=== PATIENT | male | born 1965 | race Caucasian/White ===

== ENCOUNTER 2016-04-12 18:06 | Emergency (ER) | payer OTHER ==
[~2016-04-12] VITALS: Ht 185.4 cm; Wt 132.7 kg
[~2016-04-12 18:06] MED LIST: ACCURETIC 12.51 TA1 PO; ASPI325T6 PO; ASPIRIN 32325 MG/TA1 PO; ATENOLOL25 MG PO; ATIVAN0.5 MG PO; BENADRYL50 MG PO; BETAPACE 120MG120 MG PO; CARDIZEM 60MG T60 MG PO; CARDIZEM CD 18180 MG PO; FLEXERIL 1010 MG/TAB PO; FOLIC ACID0.8 MG PO; HYDROCODONE BIT1 TA3 PO; HYTRIN 1MG C1 MG/CAP PO; IBUPROFEN800 MG PO; IRON65 M1 PO; LASIX 20MG TABL20 MG PO; LISINOPRIL/HCTZ1 TA1 PO; LORTAB 10/500 51 TA1 PO; MELATONIN FORTE3 MG PO; MELATONIN0.3 MG; MINIPRESS 1M1 MG/CAP PO; MULTAQ400 MG PO; NEXIUM 40MG40 MG PO; NORCO 325 MG-101 TAB PO; OXY IR5 MG; OXYCONTIN30 MG PO; PRIL40 PO; PRILOSEC 20MG20 MG PO; PROBIOTIC PO; PROTONIX 40MG T40 MG PO; ROXICODONE30 MG PO; TYLENOL 325MG325 MG PO; VITAMIN C500 MG PO; XARELTO10 MG PO; XARELTO20 MG PO; ZESTRIL 20MG TA20 MG PO; ZESTRIL40 MG PO
[2016-04-12 18:09] VITALS: BP 151/85; TEMP 97.8
[2016-04-12] MEDS ORDERED: ZITHROMAX 250M250 MG PO (18:13)
[2016-04-12 19:23] VITALS: PULSE 89
== END 2016-04-12 19:25 | disposition home or self-care (01) ==
LOC: COL.ER 18:06
DX: S61.012A Laceration without foreign body of left thumb without damage to nail, initial encounter (principal); W26.0XXA Contact with knife, initial encounter

== ENCOUNTER 2016-04-23 19:02 | Emergency (ER) | payer OTHER ==
[~2016-04-23 19:02] MED LIST changes: +ZITHROMAX 250M250 MG PO
[2016-04-23 19:08] VITALS: BP 139/102; PULSE 77; TEMP 98
== END 2016-04-23 19:15 | disposition home or self-care (01) ==
LOC: COL.ER 19:02
DX: Z48.02 Encounter for removal of sutures (principal)

== ENCOUNTER 2016-05-29 13:02 | Day surgery (SDC) | payer OTHER ==
[~2016-05-29] VITALS: Ht 185.5 cm; Wt 133.6 kg
[2016-05-29] VITALS (8 sets, daily range): BP systolic 107–136; BP diastolic 73–101; PULSE 52–70; TEMP 98
[2016-05-29 14:20] LABS: HEMOGLOBIN 13.5 g/dl (13.5-18.0); MEAN CELL VOLUME 86 fl (80.0-100.0); MEAN CORPUSCULAR HEMOGLOBIN 29 pg (27.0-31.0); MEAN CORPUSCULAR HGB CONC 34 g/dl (33.0-37.0); MEAN PLATELET VOLUME 8.9 fl (7.4-10.4); PLATELET COUNT 337 K/mm3 (130-400); RED BLOOD COUNT 4.67 M/mm3 (4.20-5.60); REDCELL DISTRIBUTION WIDTH-CV 13.1 % (11.5-14.5); WHITE BLOOD COUNT 10.4 K/mm3 (4.8-10.8)
[2016-05-29 14:35] LABS: INR 1.2 (0.8-3.0); PROTHROMBIN TIME 13.7 SECONDS (9.7-12.8)
[2016-05-29 14:39] LABS: CALCIUM 9.5 mg/dL (8.4-10.2); CREATININE, serum 0.83 mg/dL (0.66-1.25); POTASSIUM 4.5 mmol/L (3.4-5.0)
[2016-05-29] MEDS ORDERED: BETAPACE 120MG120 MG PO (15:00)
[2016-05-29] MEDS ORDERED: OMEGA-3 FISH1000 MG PO (15:02)
[2016-05-29] MEDS ORDERED: ASPIRIN 81M81 MG/TA2 PO (17:44)
== END 2016-05-29 19:00 | disposition home or self-care (01) ==
LOC: COL.RAD 13:02
PROVIDERS: Internal Medicine Interventional Cardiology
DX: R07.89 Other chest pain (principal); R94.39 Abnormal result of other cardiovascular function study; I48.0 Paroxysmal atrial fibrillation
CPT/HCPCS: C1760; C1887; J2250; J3010; Q9967

== ENCOUNTER 2016-11-14 14:11 | Emergency (ER) | payer OTHER ==
[~2016-11-14] VITALS: Ht 185.4 cm; Wt 134.1 kg
[~2016-11-14 14:11] MED LIST changes: +ASPIRIN 81M81 MG/TA2 PO; +OMEGA-3 FISH1000 MG PO
[2016-11-14 14:16] VITALS: BP 126/84; TEMP 98
[2016-11-14] MEDS ORDERED: LIORESAL 1010 MG/TAB PO (14:40)
[2016-11-14] MEDS ORDERED: NEURONTIN300 MG/CAP PO (14:43)
[2016-11-14] MEDS ORDERED: MULTAQ400 MG PO (14:45)
[2016-11-14] MEDS ORDERED: ROXICODONE30 MG PO (14:48)
[2016-11-14] MEDS ORDERED: PREDNISONE20 MG (14:49)
[2016-11-14] MEDS ORDERED: PROTONIX 40MG T40 MG PO (14:49)
[2016-11-14 15:16] LABS: BASO # 0.1 (0.0-0.2); BASO % 0.4 % (0.0-2.0); EOS % 0.1 % (0-4.0); GRAN # 10.3 (1.4-6.5); GRAN % 75.9 % (42.2-75.2); HEMATOCRIT 39.6 % (42.0-52.0); HEMOGLOBIN 13.5 g/dl (13.5-18.0); LYMPH # 1.7 (1.2-3.4); LYMPH % 12.7 % (20.0-51.0); MEAN CELL VOLUME 87 fl (80.0-100.0); MEAN CORPUSCULAR HEMOGLOBIN 30 pg (27.0-31.0); MEAN CORPUSCULAR HGB CONC 34 g/dl (33.0-37.0); MEAN PLATELET VOLUME 8.7 fl (7.4-10.4); MONO # 1.4 (0.1-0.6); MONO % 10.5 % (1.7-9.3); PLATELET COUNT 368 K/mm3 (130-400); RED BLOOD COUNT 4.55 M/mm3 (4.20-5.60); REDCELL DISTRIBUTION WIDTH-CV 13.3 % (11.5-14.5); WHITE BLOOD COUNT 13.6 K/mm3 (4.8-10.8)
[2016-11-14 15:24] LABS: ADJUSTED CALCIUM 8.7 mg/dL (8.4-10.2); ALANINE AMINOTRANSFERASE 37 U/L (21-72); ALBUMIN 4.3 gm/dL (3.5-5.0); ALKALINE PHOSPHATASE 57 U/L (50-136); ANION GAP 10 mmol/L (7-16); BILIRUBIN,TOTAL 0.5 mg/dL (0.0-1.0); BLOOD UREA NITROGEN 20 mg/dL (9-20); CALCIUM 8.9 mg/dL (8.4-10.2); CARBON DIOXIDE 25 mmol/L (22-30); CHLORIDE 97 mmol/L (98-107); CREATININE, serum 0.92 mg/dL (0.66-1.25); GLUCOSE 107 mg/dL (74-106); POTASSIUM 4.3 mmol/L (3.4-5.0); SODIUM 132 mmol/L (137-145); TOTAL PROTEIN 7.4 gm/dL (6.4-8.2)
[2016-11-14 15:25] LABS: C-REACTIVE PROTEIN < 0.5 mg/dL (0.0-0.9)
[2016-11-14 17:09] LABS: PH 6 (5-8); SQUAMOUS EPITHELIAL None Seen /hpf; URINE APPEARANCE Clear; URINE BACTERIA None Seen /hpf; URINE BILIRUBIN Negative (NEGATIVE); URINE BLOOD Negative (NEGATIVE); URINE COLOR Yellow; URINE GLUCOSE Negative (NEGATIVE); URINE KETONE Negative (NEGATIVE); URINE RBC None Seen /hpf; URINE UROBILINOGEN Negative (NEGATIVE); URINE WBC 0-2 /hpf
[2016-11-14] MEDS ORDERED: ASPERCREME1 EACH TP (18:01)
[2016-11-14 18:15] VITALS: PULSE 82
== END 2016-11-14 18:15 | disposition home or self-care (01) ==
LOC: COL.ER 14:11
PROVIDERS: Emergency Medicine
DX: M54.5 Low back pain (principal); G89.29 Other chronic pain; M62.830 Muscle spasm of back; M79.604 Pain in right leg; M47.816 Spondylosis without myelopathy or radiculopathy, lumbar region; I10 Essential (primary) hypertension; M25.562 Pain in left knee; Z96.651 Presence of right artificial knee joint; R26.2 Difficulty in walking, not elsewhere classified
CPT/HCPCS: J1885; J2360; J2930; J7030

== ENCOUNTER → 2016-12-14 | Outpatient (CLI) | payer OTHER ==
[~2016-12-14] MED LIST changes: +ASPERCREME1 EACH TP; +LIORESAL 1010 MG/TAB PO; +NEURONTIN300 MG/CAP PO; +PREDNISONE20 MG
== END ==
LOC: MHCPAIN 11:35
DX: G89.29 Other chronic pain (principal); M47.27 Other spondylosis with radiculopathy, lumbosacral region; Z87.891 Personal history of nicotine dependence; E66.9 Obesity, unspecified; Z79.02 Long term (current) use of antithrombotics/antiplatelets; Z68.39 Body mass index [BMI] 39.0-39.9, adult
CPT/HCPCS: G0463

== ENCOUNTER 2017-05-14 09:00 | Outpatient (RCR) | payer OTHER | END 2017-06-22 | disposition home or self-care (01) | LOC: WSPT | DX: M79.661 Pain in right lower leg (principal); M43.17 Spondylolisthesis, lumbosacral region; Z98.890 Other specified postprocedural states ==

== ENCOUNTER → 2020-12-11 | Outpatient (CLI) | payer OTHER, BC | LOC: COL.ER 20:50 | DX: M25.561 Pain in right knee (principal) ==

== ENCOUNTER 2021-03-14 06:55 | Day surgery (SDC) | payer BC ==
[~2021-03-14] VITALS: Ht 180.3 cm; Wt 130.0 kg
[2021-03-14 07:10] VITALS: BP 144/85; PULSE 77; TEMP 97
[2021-03-14] MEDS ORDERED: NORCO 325 MG-101 TAB PO (07:39)
[2021-03-14] MEDS ORDERED: ROXICODONE30 MG PO (07:39)
[2021-03-14] MEDS ORDERED: CARDIZEM 90MG T90 MG PO (07:40)
[2021-03-14] MEDS ORDERED: XARELTO20 MG PO (07:40)
[2021-03-14] MEDS ORDERED: LASIX 20MG TABL20 MG PO (07:40)
[2021-03-14] MEDS ORDERED: PRIL40 PO (07:41)
[2021-03-14] MEDS ORDERED: HYTRIN 1MG C1 MG/CAP PO (07:41)
[2021-03-14] MEDS ORDERED: TYLENOL 8 HR PO (07:42)
[2021-03-14] MEDS ORDERED: FLEXERIL 1010 MG/TAB PO (07:42)
[2021-03-14] MEDS ORDERED: COLACE 100100 MG/CAP PO (07:43)
[2021-03-14] MEDS ORDERED: DULCOLAX TAB5 MG PO (07:44)
[2021-03-14] MEDS ORDERED: SLEEP AID50 MG PO (07:44)
[2021-03-14] MEDS ORDERED: PRINIVIL20 MG PO (07:45)
[2021-03-14] MEDS ORDERED: MASON NATURAL1200 MG PO (07:45)
[2021-03-14] MEDS ORDERED: MELATONIN PO (07:48)
[2021-03-14] MEDS ORDERED: THEANINE PO (07:48)
[2021-03-14] MEDS ORDERED: METAMUCIL3.4 GM/DOS PO (07:49)
[2021-03-14] MEDS ORDERED: MUCINEX D 12001 TER PO (07:49)
[2021-03-14] MEDS ORDERED: PROBIOTIC DIGE1 EACH PO (07:50)
[2021-03-14] MEDS ORDERED: VITAMIND3 5000 PO (07:51)
[2021-03-14] MEDS ORDERED: VITAMINC1000TA PO (07:51)
[2021-03-14] MEDS ORDERED: EX-LAX MAXIMUM25 MG PO (07:51)
[2021-03-14 08:45] VITALS: BP 115/85; PULSE 81; TEMP 97.3
--- NOTE | 2021-03-14 08:45 | NUR ---
0845- PATIENT BROUGHT BACK TO ENDO ROOM 4 VIA CART AMBULATED TO CHAIR WITHOUT DIFFICULTY. AT BEDSIDE TO DRIVE PATIENT HOME. DENIES PAIN OR NAUSEA. REQUESTING MUFFIN AND SPRITE. PLACED ON MONITORS, VITAL SIGNS STABLE. REPORT RECIEVED FROM JEFFREY ECHEVARRIA. CALL SEN WITHIN REACH, WARM BLANKET PROVIDED, WILL MONITOR. 0900- VITAL SIGNS STABLE. TOLERATING FOOD AND DRINK WITHOUT DIFFICULTY. DR. MENDOZA AT BEDSIDE TO REVIEW RESULTS. WILL MONITOR.
[2021-03-14 09:00] VITALS: BP 149/91; PULSE 72
[2021-03-14 09:15] VITALS: BP 121/92; PULSE 77
--- NOTE | 2021-03-14 09:15 | NUR ---
15- VITAL SIGNS STABLE. PATIENT STATES HE FEELS READY TO GO HOME AT THIS TIME. IV REMOVED INTACT. PATIENT INSTRUCTED CAN RESUME BLOOD THINNERS. DISCHARGE INSTRUCTIONS REVIEWED WITH PATIENT AND ALL QUESTIONS ANSWERED. PATIENT TO GET DRESSED AT THIS TIME. 924- PATIENT BROUGHT DOWN TO LOBBY VIA WHEEL CHAIR BY RIOS ECHEVARRIA. TO DRIVE PATIENT HOME. ALL BELONGINGS IN HAND.
== END 2021-03-14 09:25 | disposition home or self-care (01) ==
LOC: SDCO 06:55
DX: Z12.11 Encounter for screening for malignant neoplasm of colon (principal); D12.5 Benign neoplasm of sigmoid colon; K73.9 Chronic hepatitis, unspecified; K21.9 Gastro-esophageal reflux disease without esophagitis; I10 Essential (primary) hypertension; I48.91 Unspecified atrial fibrillation; G47.33 Obstructive sleep apnea (adult) (pediatric); M19.90 Unspecified osteoarthritis, unspecified site; Z79.82 Long term (current) use of aspirin; Z79.899 Other long term (current) drug therapy; Z99.89 Dependence on other enabling machines and devices
CPT/HCPCS: J2704; J7030